=== PATIENT | male | born 1980 | race Caucasian/White ===

== ENCOUNTER 2019-12-29 15:08 | Outpatient (CLI) | payer OTHER, SELFPAY ==
[2019-12-30 23:09] LABS: SARS-CoV-2 RNA PCR Negative
== END 2019-12-29 15:09 | disposition home or self-care (01) ==
LOC: CHSLAB 15:11
PROVIDERS: PCP Internal Medicine; Visit Provider Internal Medicine
DX: R50.9 Fever, unspecified (principal); Z20.828 Contact with and (suspected) exposure to other viral communicable diseases
CPT/HCPCS: 87635; C9803; U0003

== ENCOUNTER 2020-10-20 08:34 | Outpatient (CLI) | payer SELFPAY ==
[2020-10-20 10:01] LABS: SARS-CoV-2 RNA PCR Negative (Negative)
== END 2020-10-20 08:35 | disposition home or self-care (01) ==
LOC: CHSLAB 08:37
PROVIDERS: PCP Internal Medicine; Visit Provider Internal Medicine
DX: B34.9 Viral infection, unspecified (principal); Z20.822 Contact with and (suspected) exposure to COVID-19
CPT/HCPCS: C9803; U0003; U0005

== ENCOUNTER 2023-02-21 08:19 | Outpatient (CLI) | payer OTHER, SELFPAY ==
--- NOTE | 2023-03-07 19:08 | WPDHOMESLEEP ---
Sleep Study - Home Unattended Date of Study: 02/21/23 Ordering Provider: David Bhardwaj PA-C Interpreting Provider: Cynthia Mansfield MD Home Sleep Study Type: Watch PAT Height: 1.8 m Weight: 79.379 kg Body Mass Index: 24.4 Neck Circumference (inches): 15 [place]: 9 Reason for Sleep Study Excessive daytime sleepiness, fatigue Sleep History Logan Hernández is a 42-year-old man with constant loud snoring. His medical comorbidities include hypercholesterolemia, heartburn, IBS, seasonal allergies, and mood disorder. He never awakens from sleep feeling short of breath. He constantly wakes at night with heartburn, belching or coughing.??He constantly snores, and constantly snores loudly enough that others complain. He rarely has trouble sleeping when he has a cold. He never wakes up gasping for breath during the night. He constantly has breathing problems at night observed by others. He rarely sweats excessively at night. He constantly notices his heart pounding or beating irregularly during the night. He occasionally falls asleep during the day. He never falls asleep involuntarily, rarely falls asleep while driving. He never experiences loss of muscle tone with strong emotion. He occasionally has daytime difficulty at work due to excessive sleepiness, works as a auto transport driver. He never feels paralyzed on waking or falling asleep. He rarely experiences vivid dreams upon waking or falling asleep. He never feels afraid of going to sleep. He never has nightmares. He never recalls his dreams. He never has thoughts racing through his mind. He frequently feels sad or depressed. He occasionally feels anxiety. He frequently notices parts of his body jerk. He constantly kicks during the night. He never feels crawling or aching feelings in his legs. He occasionally feels leg pain at night. He never has morning jaw pain, constantly grinds his teeth at night. He occasionally feels bothered by pain during the day, rarely awakened by pain during the night. He occasionally wakes up feeling stiff in the morning, and he rarely wakes feeling sore or achy. He frequently awakens with pain in his neck, spine, or joints. He uses marijuana for the sedative effect. He has fatigue. He takes antacids regularly. Normal bedtime is between 7:00 p.m. and 8:00 p.m., falling asleep within 10 minutes to 20 minutes, waking once at night to go to the bathroom, returns to sleep within 3 minutes. This awakening occurs in the middle of the night. His normal wake up time on weekdays is 3:00 a.m.. On weekends, bedtime is also between 7:00 p.m. and 8:00 p.m., wakes up a little later, 5:00 a.m.. He takes naps in the day, however a short nap lasting 10-15 minutes is not refreshing. Most of the time he feels refreshed on awakening. He feels better in the morning compared to other times of day. Habits:??Tobacco: former smoker Caffeine: 2-4 servings per day. Alcohol: former Recreational substances: marijuana PMFSH Past Medical History Medical History Anxiety Gastro-esophageal reflux disease without esophagitis Pure hypercholesterolemia, unspecified Family History Family History Mother Patient's mother is in good health Father Patient's father is in good health Father Hypertension Mother Hypertension Asthma Family history of diabetes mellitus in first degree relative Grandparent Family history of malignant neoplasm Sibling Family history of Hodgkin's lymphoma Social History Social History Smoking packs per day: 0.5 Smoking cigarettes per day: 10.0 Years smoked: 6 Smoking pack-years: 3.00 Smoking status: Former smoker Second hand tobacco smoke exposure: No Smoking end date: 03/25/00 Alcohol intake: former Substance use: current Substance use type: marijuana Lack of Transport
[2023-03-07 19:28] VITALS: BMI 24.4
== END 2023-03-04 08:13 | disposition home or self-care (01) ==
PROVIDERS: PCP Internal Medicine; Visit Provider Physician Assistant
DX: G47.10 Hypersomnia, unspecified (principal); G47.31 Primary central sleep apnea
CPT/HCPCS: 95800